=== PATIENT | female | born 1975 | race Caucasian/White ===

== ENCOUNTER 2020-05-29 17:56 | Emergency (ER) | payer OTHER, SELFPAY ==
[2020-05-29 18:10] VITALS: BP 146/84; PULSE 92; RESP 16; TEMP 36.6; O2SAT 100
--- NOTE | 2020-05-29 18:27 | ED.GENADULT ---
HPI - General Adult General Chief complaint: Upper Respiratory Infection Stated complaint: sore throat Time Seen by Provider: 05/29/20 18:27 Source: patient and RN notes reviewed Mode of arrival: ambulatory Limitations: no limitations History of Present Illness HPI narrative: 44-year-old female presents with complaints of sore throat for 1 day. Recently exposed to a family member who had a POSITIVE Strep result per Kayley. Mucinex without relief. Intermittent cough with productive green phlegm. No chest congestion. No high fevers, drooling, neck or throat swelling. Pain is bilateral. Hurts to swallow. Exacerbation factors consist of eating and drinking. No rhinorrhea. Nasal congestion. No voice change. No nausea, vomiting, or abdominal pain. Tolerating liquids well. Denies chills, dyspnea, difficulty swallowing, jaw pain, dental pain, facial pain, foreign body sensation, and rash. LMP no due to endometriosis ablation. Remains active. The patient reports she have not been diagnosed with COVID-19. The patient reports she is not waiting for the results of a COVID-19 lab test. Kayley says she had a NEGATIVE COVID-19 2 weeks ago. The patient reports she do not have fever, chills, weakness, or fatigue. The patient reports she do not have a new or worsening cough or shortness of breath. Denies chest pain. The patient reports she do not have any rhinorrhea, loss of taste, and diarrhea. Denies recent traveling. Denies concerns for COVID-19 or exposures been home with limited outdoor exposure except for essential household needs, work, and return home. At this time, patient is not suspected of having COVID-19. Complaints of dental pain for the past 3-4 days. No treatment. Denies any drainage. No fever. No jaw swelling. No neck swelling. No limitation with speaking or swallowing. Has history of dental caries. Has not seen a dentist recently. No dental trauma. No oral lesions. Exacerbating factors consist of chewing on LT side, eating and drinking cold items. Relieving factors not eating on LT side and avoiding cold items. No dentures or bridges. Tolerating liquids well. Some parts of this dictation were generated by voice recognition software and may contain typographical and/or grammatical inaccuracies. Related Data Home Medications Medication Instructions Recorded Confirmed lisinopril-hydrochlorothiazide 1 tablet PO DAILY 05/29/20 05/29/20 nitroglycerin 0.4 mg SUBLINGUAL DIRECTED 05/29/20 05/29/20 Allergies Allergy/AdvReac Type Severity Reaction Status Date / Time Penicillins Allergy Unknown Hives Verified 05/29/20 18:16 Review of Systems Review of Systems: Narrative: CONSTITUTIONAL: Denies fever, chills, sweats. EYES: Denies visual changes, redness, discharge. ENT: Denies rhinorrhea, otalgia. Complains of sore throat, congestion, LT lower-rear dental pain. CARDIOVASCULAR: Denies chest pain, palpitations, edema. RESPIRATORY: Denies dyspnea, wheezing. Complains of intermittent cough/productive cough. GASTROINTESTINAL: Denies abdominal pain, nausea, vomiting, diarrhea. GENITOURINARY: Denies dysuria, hematuria, abnormal discharge. SKIN: Denies rash or itching. MUSCULOSKELETAL: Denies acute back pain, joint pain, or myalgia. NEUROLOGIC: Denies numbness or focal weakness. PSYCHIATRIC: Denies anxiety or depression. All systems reviewed & are unremarkable except as noted in HPI and below. PENDING SALE TO [facility] Past Medical History Medical History (Updated 05/30/20 @ 00:00 by Background Daemon) Hypertension Myocardial infarct Patient says silent one 04/26 Surgical History Surgical History (Updated 05/29/20 @ 19:36 by HAMZAH Garza) History of breast augmentation History of endometrial ablation History of removal of cyst History of tubal ligation Family History Family History (Updated 05/29/20 @ 19:39 by HAMZAH Garza) Mother Family history of Parkinson's disease Family history of
== END 2020-05-29 18:50 | disposition home or self-care (01) ==
PROVIDERS: Emergency Provider Nurse Practitioner Family; PCP Physician Assistant
DX: K08.89 Other specified disorders of teeth and supporting structures (principal); K02.9 Dental caries, unspecified; J02.9 Acute pharyngitis, unspecified; Z20.828 Contact with and (suspected) exposure to other viral communicable diseases; I10 Essential (primary) hypertension; I25.2 Old myocardial infarction
CPT/HCPCS: 87081; 87804; 87880; 99213; G0463

== ENCOUNTER 2020-08-03 18:22 | Emergency (ER) | payer OTHER, SELFPAY ==
[2020-08-03 18:34] VITALS: BP 206/104; PULSE 70; RESP 18; TEMP 36.9; O2SAT 99
--- NOTE | 2020-08-03 18:47 | ED.DENTAL ---
HPI - Dental/Oral General Chief complaint: Dental/Oral Stated complaint: tooth pain Time Seen by Provider: 08/03/20 18:48 Source: patient and RN notes reviewed Mode of arrival: ambulatory Limitations: no limitations History of Present Illness HPI Narrative: 44-year-old female who presents to [facility] with complaints of 3 day duration of dental pain to the left upper side of her mouth from where she has broke a tooth. Patient states that she has put Ibuprofen directly on area where tooth is broken and also has put Jung Strickland on area with no relief. Patient states that she has been taking large doses of Ibuprofen for the pain, reports she can't take Tylenol due to her heart medication. patient also states complaints of pain to the lower left wisdom tooth where gum is red and swollen. Patient states that the soonest she can get into the dentist is on the 08 of August. MD Complaint: tooth pain (#17 impacted wisdom) and tooth injury (#16,) Location: Tooth # Onset (ago): day(s) (6) Duration: worsening Severity: severe Severity scale (1-10): >10 Relieving factors: NSAIDs Exacerbating factors: cold Context: history of dental caries and poor dental care Associated symptoms: gum swelling Treatment prior to arrival: topical analgesic and other (Ibuprofen) Related Data Home Medications Medication Instructions Recorded Confirmed lisinopril-hydrochlorothiazide 1 tablet PO DAILY 05/29/20 08/03/20 nitroglycerin 0.4 mg SUBLINGUAL DIRECTED 05/29/20 08/03/20 aspirin [Adult Low Dose Aspirin] 81 mg PO DAILY 08/03/20 08/03/20 Allergies Allergy/AdvReac Type Severity Reaction Status Date / Time Penicillins Allergy Unknown Hives Verified 08/03/20 18:44 Review of Systems Review of Systems: Narrative: CONSTITUTIONAL: Denies fever, chills, or sweats. EYES: Denies visual changes, redness, or discharge. ENT: Denies rhinorrhea, congestion, sore throat, or otalgia,positive for dental pain, swelling and redness of gums. Denies any difficulty with her swallowing or any shortness of breath, no trismus noted CARDIOVASCULAR: Denies chest pain, palpitations, or edema. RESPIRATORY: Denies cough or dyspnea. GASTROINTESTINAL: Denies abdominal pain, nausea, vomiting, or diarrhea. GENITOURINARY: Denies dysuria or hematuria. SKIN: Denies rash or itching. MUSCULOSKELETAL: Denies back pain, joint pain, or myalgia. NEUROLOGIC: Denies headache, numbness, or weakness. PSYCHIATRIC: Denies anxiety or depression. All systems reviewed & are unremarkable except as noted in HPI and below PMFSH Past Medical History Medical History Hypertension Myocardial infarct Patient says silent one 04/26 Surgical History Surgical History History of breast augmentation History of endometrial ablation History of removal of cyst History of tubal ligation Family History Family History Mother Family history of Parkinson's disease Family history of Alzheimer's disease Family history of diabetes mellitus in first degree relative Father Family history of lung cancer Other Family history of malignant neoplasm Social History Social History (Updated 08/06/20 @ 17:31 by Mayra Saeed NP) Smoking status: Never smoker Second hand tobacco smoke exposure: No Alcohol intake: current Substance use: never Gender identity (if verbalized by the patient): Female Comments At time of signature, agree with nursing past medical, surgical, social and family history. There is no relevant family history pertinent to the presenting complaint Exam Narrative: Exam Narrative: GENERAL: Well-appearing, well-nourished, and in no acute distress. HEAD: Normocephalic, atraumatic. EYES: PERRLA and EOMI. ENT: Nares clear, no rhinorrhea or epistaxis. Mucous membranes moist.Tm's normal with good light refl
[2020-08-03 19:15] VITALS: BP 178/104
== END 2020-08-03 19:38 | disposition home or self-care (01) ==
PROVIDERS: Emergency Provider Registered Nurse
DX: K02.9 Dental caries, unspecified (principal); I25.2 Old myocardial infarction; Z79.82 Long term (current) use of aspirin
CPT/HCPCS: 99213; G0463

== ENCOUNTER 2021-05-17 19:36 | Emergency (ER) | payer OTHER, SELFPAY ==
--- NOTE | 2021-05-17 19:46 | ED.SKABFB ---
HPI - Skin/Abscess/Foreign Bdy General Chief complaint: Skin/Abscess/Foreign Body Stated complaint: Bee Sting Time Seen by Provider: 05/17/21 19:46 Source: patient and RN notes reviewed Mode of arrival: ambulatory Limitations: no limitations History of Present Illness HPI narrative: 45-year-old female presents to the [facility] after being stung by a bee at 230 this afternoon, 5 hours prior to arrival. No treatment prior to arrival. Swelling noted to the left middle finger and dorsal aspect left hand. Related Data Home Medications Medication Instructions Recorded Confirmed lisinopril-hydrochlorothiazide 1 tablet PO DAILY 05/29/20 05/17/21 nitroglycerin 0.4 mg SUBLINGUAL DIRECTED 05/29/20 05/17/21 aspirin [Adult Low Dose Aspirin] 81 mg PO DAILY 08/03/20 05/17/21 Allergies Allergy/AdvReac Type Severity Reaction Status Date / Time Penicillins Allergy Unknown Hives Verified 05/17/21 19:39 Review of Systems Review of Systems: All systems reviewed & are unremarkable except as noted in HPI and below Constitutional: Constitutional: Reports no additional constitutional complaints, Denies chills and Denies fever(s) Eyes: Eyes: Reports no additional eye complaints ENT: Reports system reviewed and no additional complaints, except as documented Cardiovascular: Cardiovascular: Reports no additional cardiovascular complaints Respiratory: Respiratory: Reports no additional respiratory complaints Integumentary/Breasts: Skin/Breast: Reports as per HPI Comments: Dorsal aspect left hand redness swelling Neurologic: Reports system reviewed and no additional complaints, except as documented Psychiatric: Psychiatric: Reports no additional psychiatric complaints Allergic/Immunologic: Allergic/Immunologic: Reports no additional allergic/immunologic complaints, Denies lip swelling, Denies throat swelling, Denies tongue swelling and Denies wheezing PMFSH Past Medical History Medical History Hypertension Myocardial infarct Patient says silent one 04/26 Surgical History Surgical History History of breast augmentation History of endometrial ablation History of removal of cyst History of tubal ligation Family History Family History Mother Family history of Parkinson's disease Family history of Alzheimer's disease Family history of diabetes mellitus in first degree relative Father Family history of lung cancer Other Family history of malignant neoplasm Social History Social History Smoking status: Never smoker Second hand tobacco smoke exposure: No Alcohol intake: current Substance use: never Gender identity (if verbalized by the patient): Female Sexual Orientation (if Verbalized by the Patient): Straight or Heterosexual Comments At the time of my signature, I reviewed and agree with the nursing past medical, surgical, social, and family history. There is no relevant family history pertinent to the patient complaint. Exam Const: General: healthy appearing, no acute distress and alert Nutritional Appearance: well nourished Orientation/consciousness: patient oriented x3 Limitations: no limitations HENMT: Head: normal to inspection Ears: external ears normal General nose exam: Normal external nose present, Normal nares present and Normal nasal mucous membranes and turbinates present Face and sinus: normal facial exam Mouth: Yes Normal oral and palatal mucosa present and Yes moist mucous membranes Throat: posterior oropharynx normal and uvula midline Eyes: Conjunctivae: conjunctivae normal Pupils: Equal, round and reactive pupils present Neck: Neck: normal visual inspection, no lymphadenopathy and no meningeal signs Chest: Chest palpation & inspection: normal inspection of the chest Resp: Effo
[2021-05-17 19:48] VITALS: BP 152/98; PULSE 84; RESP 18; TEMP 37.1; O2SAT 100
== END 2021-05-17 19:57 | disposition home or self-care (01) ==
PROVIDERS: Emergency Provider Nurse Practitioner
DX: T63.441A Toxic effect of venom of bees, accidental (unintentional), initial encounter (principal); I10 Essential (primary) hypertension; I25.2 Old myocardial infarction
CPT/HCPCS: 99213; G0463

== ENCOUNTER 2022-05-22 10:00 | Emergency (ER) | payer OTHER, SELFPAY ==
--- NOTE | ~2022-05-22 | XR_ITS ---
EXAMINATION: XR shoulder LT min 2V INDICATION: Left shoulder pain TECHNIQUE: Four views of the left shoulder are submitted. COMPARISON: None FINDINGS: Normal alignment. No fracture. Glenohumeral and acromioclavicular joint spaces are normal. Soft tissues are unremarkable. IMPRESSION: 1. No acute osseous abnormality. Reviewed, dictated and finalized at location B.
[2022-05-22 10:08] VITALS: BP 145/82; PULSE 74; RESP 16; TEMP 36.3; O2SAT 100
--- NOTE | 2022-05-22 10:10 | ED.UPPEXIN ---
HPI - Extremity Injury (Upper) General Chief Complaint: Extremity Injury, Upper Stated Complaint: Injury to left shoulder and elbow Time Seen by Provider: 05/22/22 10:20 Source: patient Mode of arrival: ambulatory Limitations: no limitations History of Present Illness HPI narrative: 46 y/o female presented for c/o left shoulder pain for 6 days after injury at work. She states she slipped and fell, landing on the right knee and left arm. States pain is not getting better. Pain is worse to the back of the shoulder with movement, causing sharp shooting pain to the elbow. No pain at rest. Denies numbness, tingling or weakness of the extremity. Takes scheduled Aleve daily and took one additional ibuprofen. Related Data Home Medications Medication Instructions Recorded Confirmed nitroglycerin 0.4 mg sublingual 0.4 mg sublingual DIRECTED 05/29/20 05/17/21 tablet aspirin 81 mg tablet 81 mg PO DAILY 08/03/20 05/17/21 amlodipine 5 mg tablet mg 05/22/22 carvedilol 6.25 mg tablet mg 05/22/22 chlorthalidone 25 mg tablet mg 05/22/22 clonidine HCl 0.1 mg tablet mg 05/22/22 elagolix 150 mg tablet (Orilissa) mg 05/22/22 losartan 25 mg tablet mg 05/22/22 Allergies Allergy/AdvReac Type Severity Reaction Status Date / Time Penicillins Allergy Unknown Hives Verified 05/22/22 10:05 Review of Systems Review of Systems: CONSTITUTIONAL: Denies body aches, fever, chills CARDIOVASCULAR: Denies chest pain, palpitations, or edema. RESPIRATORY: Denies cough or dyspnea. SKIN: Denies rash, itching, or wounds. MUSCULOSKELETAL: reports left shoulder pain NEUROLOGIC: Denies headache, numbness, tingling, or weakness. All systems reviewed & are unremarkable except as noted in HPI and below [facility] Past Medical History Medical History Hypertension Myocardial infarct Patient says silent one 04/26 Surgical History Surgical History History of breast augmentation History of endometrial ablation History of removal of cyst History of tubal ligation Family History Family History Mother Family history of Parkinson's disease Family history of Alzheimer's disease Family history of diabetes mellitus in first degree relative Father Family history of lung cancer Other Family history of malignant neoplasm Social History Social History Smoking status: Never smoker Second hand tobacco smoke exposure: No Alcohol intake: current Substance use: never Gender identity (if verbalized by the patient): Female Sexual Orientation (if Verbalized by the Patient): Straight or Heterosexual Comments At time of signature, I have reviewed and agree with nursing past medical, surgical, social and family history unless otherwise noted. Please see nursing chart for further information. There is no relevant family history pertinent to the presenting complaint Exam Narrative: GENERAL: Well-appearing NECK: Supple. No cervical vpt, full ROM CHEST: Speaks in full sentences. No respiratory distress. HEART: Regular rate and rhythm. Normal and equal peripheral pulses. EXTREMITIES: LUE has normal strength and sensation, normal range of motion at shoulder but endorses pain with movement. Mild tenderness to palpation posterior deltoid, left trapezius. No edema or ecchymosis. No open wounds or obvious deformity; pulse palpable and equal bilaterally, skin warm, dry, pink. Capillary refill less than 3 seconds. SKIN: Warm, dry, no rash. NEURO: Alert and oriented x3. PSYCH: Normal mood and affect Course Course Emergency Course: Patient is aware of diagnosis, understands and agrees to treatment plan. Anticipatory guidance given. Patient agrees to follow-up as directed and is aware of reasons to seek care at the
== END 2022-05-22 11:03 | disposition home or self-care (01) ==
PROVIDERS: Emergency Provider Nurse Practitioner Family; PCP Physician Assistant
DX: M25.512 Pain in left shoulder (principal); I10 Essential (primary) hypertension; I25.2 Old myocardial infarction; Z79.82 Long term (current) use of aspirin
CPT/HCPCS: 73030; 99213; G0463

== ENCOUNTER 2022-11-28 09:12 | Emergency (ER) | payer OTHER, SELFPAY ==
[2022-11-28 09:22] VITALS: BP 166/103; PULSE 95; RESP 16; TEMP 36.1; O2SAT 99
--- NOTE | 2022-11-28 09:40 | ED.URI ---
HPI - URI/Sore Throat General Chief Complaint: Upper Respiratory Infection Stated Complaint: trouble breathing, sore throat Time Seen by Provider: 11/28/22 09:40 Source: patient Mode of arrival: ambulatory Limitations: no limitations History of Present Illness HPI Narrative: 46-year-old female presents with complaint of postnasal drainage, nasal congestion, sore throat for 2 days. Reports headaches. Afebrile. No chest pain or shortness breath. Reports that cough is mild and dry. Taking [id number] Coricidin with no relief of symptoms. Reports that she did have strep exposure to her friend's daughter. Denies nausea vomiting diarrhea. Has a broad shower this weekend and wants to make sure that she does not have strep prior to attending. All systems reviewed and negative except as noted above. Related Data Home Medications Medication Instructions Recorded Confirmed nitroglycerin 0.4 mg sublingual 0.4 mg sublingual DIRECTED 05/29/20 11/28/22 tablet aspirin 81 mg tablet 81 mg PO DAILY 08/03/20 11/28/22 amlodipine 5 mg tablet 10 mg PO DAILY 05/22/22 11/28/22 carvedilol 6.25 mg tablet 6.25 mg PO DAILY 05/22/22 11/28/22 chlorthalidone 25 mg tablet 25 mg PO DAILY 05/22/22 11/28/22 clonidine HCl 0.1 mg tablet 0.1 mg PO DAILY 05/22/22 11/28/22 elagolix 150 mg tablet (Orilissa) 150 mg PO DAILY 05/22/22 11/28/22 losartan 25 mg tablet 25 mg PO DAILY 05/22/22 11/28/22 Allergies Allergy/AdvReac Type Severity Reaction Status Date / Time Penicillins Allergy Unknown Hives Verified 11/28/22 09:21 Review of Systems Review of Systems: CONSTITUTIONAL: Denies fever, chills, or sweats. reports fatigue prior EYES: Denies visual changes, redness, or discharge. ENT: Reports rhinorrhea, congestion, sore throat. Denies otalgia. CARDIOVASCULAR: Denies chest pain, palpitations, or edema. RESPIRATORY: reports cough. Denies dyspnea. GASTROINTESTINAL: Denies abdominal pain, nausea, vomiting, or diarrhea. GENITOURINARY: Denies dysuria or hematuria. SKIN: Denies rash or itching. MUSCULOSKELETAL: Denies back pain, joint pain, or myalgia. NEUROLOGIC: Denies headache, numbness, or weakness. PSYCHIATRIC: Denies anxiety or depression. All other systems reviewed are negative, except as documented in HPI. PMFSH Past Medical History Medical History Hypertension Myocardial infarct Patient says silent one 04/26 Surgical History Surgical History History of breast augmentation History of endometrial ablation History of removal of cyst History of tubal ligation Family History Family History Mother Family history of Parkinson's disease Family history of Alzheimer's disease Family history of diabetes mellitus in first degree relative Father Family history of lung cancer Other Family history of malignant neoplasm Social History Social History Smoking status: Never smoker Second hand tobacco smoke exposure: No Alcohol intake: current Substance use: never Living arrangements: with family Occupation/Education: occupation Gender identity (if verbalized by the patient): Female Sexual Orientation (if Verbalized by the Patient): Straight or Heterosexual Comments At time of signature, agree with nursing past medical, surgical, social and family history. There is no relevant family history pertinent to the presenting complaint. Exam Narrative: GENERAL: This is a well-nourished, well-developed patient, in no apparent distress. HEAD: normocephalic, atraumatic. EYES: PERRL. Sclera clear/white. Vision is grossly intact. EARS: External ears normal, auditory canals clear and without drainage, TMs normal without perforation. Hearing grossly intact. NOSE: External nose normal with clear n
== END 2022-11-28 10:11 | disposition home or self-care (01) ==
PROVIDERS: Emergency Provider Nurse Practitioner Family; PCP Physician Assistant
DX: J01.90 Acute sinusitis, unspecified (principal); B97.89 Other viral agents as the cause of diseases classified elsewhere; I10 Essential (primary) hypertension; I25.2 Old myocardial infarction; Z79.82 Long term (current) use of aspirin; Z20.822 Contact with and (suspected) exposure to COVID-19
CPT/HCPCS: 87081; 87426; 87880; 99213; C9803; G0463

== ENCOUNTER 2023-03-18 11:04 | Emergency (ER) | payer OTHER, SELFPAY ==
--- NOTE | ~2023-03-18 | XR_ITS ---
EXAMINATION: XR ankle RT min 3V DATE: 03/18/2023 11:46 INDICATION: Lateral right ankle pain TECHNIQUE: Anteroposterior, oblique, mortise, and lateral views of the right ankle were obtained. COMPARISON: None. FINDINGS: Alignment is normal. No fracture. Joint spaces are well maintained. Small Achilles and plantar calca irma spurs. No ankle joint effusion. Soft tissue swelling about the lateral malleolus. IMPRESSION: 1. No acute osseous abnormality. Reviewed, dictated and finalized at location A.
[2023-03-18 11:20] VITALS: BP 162/104; PULSE 76; RESP 14; TEMP 36.8; O2SAT 100
--- NOTE | 2023-03-18 11:24 | ED.EXTPRO ---
HPI - Extremity Problem General Chief complaint: Extremity Problem,Nontraumatic Stated complaint: Right Ankle Pain Time Seen by Provider: 03/18/23 11:24 Source: patient Mode of arrival: ambulatory Limitations: no limitations History of Present Illness HPI Narrative: 47-year-old female presents with complaint of pain to right ankle for the past 2 weeks. Denies injury. Pain is worse with ambulatory. Reports the only shoes that she likes to wear are flip-flops. Reports history of plantar fasciitis and states that flu swabs were the only issues at uncomfortable for her. 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 States she has tried several different types of shoe inserts and tennis shoes from the [employer] store a non help her foot pain. Unsure if ankle pain is related to her plantar fasciitis. States that she has asked her primary care physician for referral to Podiatry several times and has not been able to get in for an appointment. All systems reviewed and negative except as noted above. Related Data Home Medications Medication Instructions Recorded Confirmed nitroglycerin 0.4 mg sublingual 0.4 mg sublingual DIRECTED 05/29/20 03/18/23 tablet aspirin 81 mg tablet 81 mg PO DAILY 08/03/20 03/18/23 amlodipine 5 mg tablet 10 mg PO DAILY 05/22/22 03/18/23 carvedilol 6.25 mg tablet 6.25 mg PO DAILY 05/22/22 03/18/23 chlorthalidone 25 mg tablet 25 mg PO DAILY 05/22/22 03/18/23 clonidine HCl 0.1 mg tablet 0.1 mg PO DAILY 05/22/22 03/18/23 elagolix 150 mg tablet (Orilissa) 150 mg PO DAILY 05/22/22 03/18/23 losartan 25 mg tablet 25 mg PO DAILY 05/22/22 03/18/23 spironolactone 25 mg tablet 25 mg PO DAILY 03/18/23 03/18/23 Allergies Allergy/AdvReac Type Severity Reaction Status Date / Time Penicillins Allergy Unknown Hives Verified 03/18/23 11:31 lisinopril AdvReac Cough Verified 03/18/23 11:32 Review of Systems Review of Systems: CONSTITUTIONAL: Denies fever, chills, or sweats. EYES: Denies visual changes, redness, or discharge. ENT: Denies rhinorrhea, congestion, sore throat, or otalgia. CARDIOVASCULAR: Denies chest pain, palpitations, or edema. RESPIRATORY: Denies cough or dyspnea. GASTROINTESTINAL: Denies abdominal pain, nausea, vomiting, or diarrhea. GENITOURINARY: Denies dysuria or hematuria. SKIN: Denies rash or itching. MUSCULOSKELETAL: Denies back pain, joint pain, or myalgia. Reports right ankle pain. NEUROLOGIC: Denies headache, numbness, or weakness. PSYCHIATRIC: Denies anxiety or depression. All other systems reviewed are negative, except as documented in HPI. [facility] Past Medical History Medical History Hypertension Myocardial infarct Patient says silent one 04/26 Surgical History Surgical History History of breast augmentation History of endometrial ablation History of removal of cyst History of tubal ligation Family History Family History Mother Family history of Parkinson's disease Family history of Alzheimer's disease Family history of diabetes mellitus in first degree relative Father Family history of lung cancer Other Family history of malignant neoplasm Social History Social History Smoking status: Never smoker Second hand tobacco smoke exposure: No Alcohol intake: current Substance use: never Living arrangements: with family Occupation/Education: occupation Gender identity (if verbalized by the patient): Female Sexual Orientation (if Verbalized by the Patient): Straight or Heterosexual Comments At time of signature, agree with nursing past medical, surgical, social and family history. There is no relevant family history pertinent to the presenting complaint. Exam Narrative: GENERAL: This
== END 2023-03-18 12:20 | disposition home or self-care (01) ==
PROVIDERS: Emergency Provider Nurse Practitioner Family; PCP Physician Assistant
DX: S96.911A Strain of unspecified muscle and tendon at ankle and foot level, right foot, initial encounter (principal); X58.XXXA Exposure to other specified factors, initial encounter; I10 Essential (primary) hypertension; I25.2 Old myocardial infarction
CPT/HCPCS: 73610; 99213; G0463

== ENCOUNTER 2023-07-21 12:45 | Emergency (ER) | payer OTHER, SELFPAY ==
[2023-07-21 12:59] VITALS: BP 162/96; PULSE 74; RESP 20; TEMP 36.6; O2SAT 97
--- NOTE | 2023-07-21 13:28 | ED.GENADULT ---
HPI - General Adult General Chief complaint: Neck Pain/Injury Stated complaint: Neck Pain Time Seen by Provider: 07/21/23 13:28 Source: patient, RN notes reviewed and old records reviewed Mode of arrival: ambulatory Limitations: no limitations History of Present Illness HPI narrative: 47-year-old female presents to the [facility] with right-sided neck pain since yesterday morning. Had significant other tried massaging it and used icy Hot with minimal to no relief. Patient states she woke up yesterday morning and felt like she just slept wrong. ? Able to shrug shoulders. Full range of motion of the shoulders. Denies any numbness or tingling. Patient is on the lateral aspect of the right neck and radiates into the shoulder area. Full range of motion of the elbow, wrist. Strong title officer noted. No midline tenderness. No loss retention of bowel or bladder. No erythema, ecchymosis or rash noted Treatments prior to arrival: other (Icy Hot massage) Related Data Home Medications Medication Instructions Recorded Confirmed nitroglycerin 0.4 mg sublingual 0.4 mg sublingual DIRECTED 05/29/20 07/21/23 tablet aspirin 81 mg tablet 81 mg PO DAILY 08/03/20 07/21/23 amlodipine 5 mg tablet 10 mg PO DAILY 05/22/22 07/21/23 carvedilol 6.25 mg tablet 6.25 mg PO DAILY 05/22/22 07/21/23 chlorthalidone 25 mg tablet 25 mg PO DAILY 05/22/22 07/21/23 clonidine HCl 0.1 mg tablet 0.1 mg PO DAILY 05/22/22 07/21/23 elagolix 150 mg tablet (Orilissa) 150 mg PO DAILY 05/22/22 07/21/23 losartan 25 mg tablet 25 mg PO DAILY 05/22/22 07/21/23 spironolactone 25 mg tablet 25 mg PO DAILY 03/18/23 07/21/23 Allergies Allergy/AdvReac Type Severity Reaction Status Date / Time Penicillins Allergy Unknown Hives Verified 07/21/23 13:29 lisinopril AdvReac Cough Verified 07/21/23 13:29 Review of Systems Review of Systems: All systems reviewed & are unremarkable except as noted in HPI and below Constitutional: Constitutional: Reports no additional constitutional complaints Eyes: Eyes: Reports no additional eye complaints ENT: Reports system reviewed and no additional complaints, except as documented Cardiovascular: Cardiovascular: Reports no additional cardiovascular complaints, Denies chest pain and Denies dyspnea Respiratory: Respiratory: Reports no additional respiratory complaints, Denies chest congestion, Denies cough and Denies dyspnea Gastrointestinal: Gastrointestinal: Reports no additional gastrointestinal complaints, Denies abdominal pain, Denies nausea and Denies vomiting Musculoskeletal: Musculoskeletal: Reports as per HPI Integumentary/Breasts: Skin/Breast: Reports system reviewed and no additional complaints, except as docu Neurologic: Reports system reviewed and no additional complaints, except as documented Psychiatric: Psychiatric: Reports no additional psychiatric complaints Allergic/Immunologic: Allergic/Immunologic: Reports no additional allergic/immunologic complaints PMFSH Past Medical History Medical History Hypertension Myocardial infarct Patient says silent one 04/26 Surgical History Surgical History History of breast augmentation History of endometrial ablation History of removal of cyst History of tubal ligation Family History Family History Mother Family history of Parkinson's disease Family history of Alzheimer's disease Family history of diabetes mellitus in first degree relative Father Family history of lung cancer Other Family history of malignant neoplasm Social History Social History Smoking status: Never smoker Second hand tobacco smoke exposure: No Alcohol intake: current Substance use: never Living arrangements: with family Occupation/Education: occupation Gen
== END 2023-07-21 13:39 | disposition home or self-care (01) ==
PROVIDERS: Emergency Provider Nurse Practitioner; PCP Physician Assistant
DX: S16.1XXA Strain of muscle, fascia and tendon at neck level, initial encounter (principal); X58.XXXA Exposure to other specified factors, initial encounter; I10 Essential (primary) hypertension; I25.2 Old myocardial infarction
CPT/HCPCS: 99213; G0463

== ENCOUNTER 2023-08-13 10:09 | Emergency (ER) | payer OTHER, SELFPAY ==
[2023-08-13 10:18] VITALS: BP 153/93; PULSE 79; RESP 16; TEMP 37.2; O2SAT 100
--- NOTE | 2023-08-13 10:56 | ED.URI ---
HPI - URI/Sore Throat General Chief Complaint: Upper Respiratory Infection Stated Complaint: cough,chest congestion Source: patient, RN notes reviewed and old records reviewed Mode of arrival: ambulatory Limitations: no limitations History of Present Illness HPI Narrative: 47-year-old female presents to [facility] with complaint of cough, chest congestion for 3 days. Patient denies sinus congestion, body aches, fever, sore throat. Patient states can take [id number] medications due to high blood pressure. MD elicited complaint: cough Onset (ago): day(s) (3) Related Data Home Medications Medication Instructions Recorded Confirmed nitroglycerin 0.4 mg sublingual 0.4 mg sublingual DIRECTED 05/29/20 08/13/23 tablet aspirin 81 mg tablet 81 mg PO DAILY 08/03/20 08/13/23 amlodipine 5 mg tablet 10 mg PO DAILY 05/22/22 08/13/23 carvedilol 6.25 mg tablet 6.25 mg PO DAILY 05/22/22 08/13/23 chlorthalidone 25 mg tablet 25 mg PO DAILY 05/22/22 08/13/23 clonidine HCl 0.1 mg tablet 0.1 mg PO DAILY 05/22/22 08/13/23 elagolix 150 mg tablet (Orilissa) 150 mg PO DAILY 05/22/22 08/13/23 losartan 25 mg tablet 25 mg PO DAILY 05/22/22 08/13/23 spironolactone 25 mg tablet 25 mg PO DAILY 03/18/23 08/13/23 Allergies Allergy/AdvReac Type Severity Reaction Status Date / Time Penicillins Allergy Unknown Hives Verified 08/13/23 10:26 lisinopril AdvReac Cough Verified 08/13/23 10:26 Review of Systems Constitutional: Constitutional: Reports no additional constitutional complaints, Denies fever(s), Denies headache(s) and Denies malaise Eyes: Eyes: Reports no additional eye complaints ENT: Reports system reviewed and no additional complaints, except as documented and Denies nasal congestion Cardiovascular: Cardiovascular: Reports no additional cardiovascular complaints Respiratory: Respiratory: Reports as per HPI, Reports chest congestion, Reports cough, Denies pain on inspiration, Denies pain with cough and Denies dyspnea Neurologic: Reports system reviewed and no additional complaints, except as documented PMFSH Past Medical History Medical History Hypertension Myocardial infarct Patient says silent one 04/26 Surgical History Surgical History History of breast augmentation History of endometrial ablation History of removal of cyst History of tubal ligation Family History Family History Mother Family history of Parkinson's disease Family history of Alzheimer's disease Family history of diabetes mellitus in first degree relative Father Family history of lung cancer Other Family history of malignant neoplasm Social History Social History Smoking status: Never smoker Second hand tobacco smoke exposure: No Alcohol intake: current Substance use: never Living arrangements: with family Occupation/Education: occupation Gender identity (if verbalized by the patient): Female Sexual Orientation (if Verbalized by the Patient): Straight or Heterosexual Comments At the time of my signature, I reviewed and agree with the nursing past medical, surgical, social, and family history. There is no relevant family history pertinent to the patient complaint. Exam Const: General: cooperative, healthy appearing, no acute distress and well nourished Nutritional Appearance: well nourished Orientation/consciousness: patient oriented x3 Limitations: no limitations HENMT: Head: normal to inspection and normocephalic Ears: external ears normal, TM's normal bilaterally, mastoids normal and Abnormal EAC present Face/Nose/Sinus: normal facial exam Face and sinus: normal facial exam Mouth: Yes Normal oral and palatal mucosa present, Yes oropharynx normal and Yes moist mucous membranes Throat: posteri
[2023-08-13 11:08] VITALS: BP 152/78
== END 2023-08-13 11:08 | disposition home or self-care (01) ==
PROVIDERS: Emergency Provider Registered Nurse; PCP Physician Assistant
DX: J40 Bronchitis, not specified as acute or chronic (principal); I25.2 Old myocardial infarction; Z79.82 Long term (current) use of aspirin
CPT/HCPCS: 99213; G0463

== ENCOUNTER 2024-01-05 11:56 | Emergency (ER) | payer OTHER, SELFPAY ==
[2024-01-05 12:04] VITALS: BP 146/86; PULSE 75; RESP 16; TEMP 36.6; O2SAT 100
--- NOTE | 2024-01-05 12:10 | ED.URI ---
HPI - URI/Sore Throat General Chief Complaint: Upper Respiratory Infection Stated Complaint: Sore Throat/Sinus Time Seen by Provider: 01/05/24 12:37 Source: patient and RN notes reviewed Mode of arrival: ambulatory Limitations: no limitations History of Present Illness HPI Narrative: 48-year-old female presents with concern for one-week history of sore throat, hoarse voice, productive cough, posterior rib and upper back discomfort that worsens with coughing. Reports fever, body aches, chills, sweats. Denies known sick contacts. MD elicited complaint: cough, sore throat and nasal congestion Related Data Home Medications Medication Instructions Recorded Confirmed nitroglycerin 0.4 mg sublingual 0.4 mg sublingual DIRECTED 05/29/20 01/05/24 tablet aspirin 81 mg tablet 81 mg PO DAILY 08/03/20 01/05/24 amlodipine 5 mg tablet 10 mg PO DAILY 05/22/22 01/05/24 carvedilol 6.25 mg tablet 6.25 mg PO DAILY 05/22/22 01/05/24 chlorthalidone 25 mg tablet 25 mg PO DAILY 05/22/22 01/05/24 clonidine HCl 0.1 mg tablet 0.1 mg PO DAILY 05/22/22 01/05/24 elagolix 150 mg tablet (Orilissa) 150 mg PO DAILY 05/22/22 01/05/24 losartan 25 mg tablet 25 mg PO DAILY 05/22/22 01/05/24 spironolactone 25 mg tablet 25 mg PO DAILY 03/18/23 01/05/24 semaglutide 0.25 mg or 0.5 mg (2 0.5 mg subcut WEEKLY 01/05/24 01/05/24 mg/1.5 mL) subcutaneous pen injector Allergies Allergy/AdvReac Type Severity Reaction Status Date / Time Penicillins Allergy Unknown Hives Verified 01/05/24 12:28 lisinopril AdvReac Cough Verified 01/05/24 12:28 Review of Systems Review of Systems: CONSTITUTIONAL: Reports malaise, chills, sweats, or fever. EYES: Denies visual changes, redness, or discharge. ENT: Reports rhinorrhea, congestion, and sore throat. CARDIOVASCULAR: Denies chest pain, palpitations, or edema. RESPIRATORY: Reports productive cough, chest wall discomfort. Denies dyspnea. GASTROINTESTINAL: Denies abdominal pain, nausea, vomiting, diarrhea SKIN: Denies rash or itching. MUSCULOSKELETAL: Reports myalgia. NEUROLOGIC: Reports headache. All systems reviewed & are unremarkable except as noted in HPI and below PMFSH Past Medical History Medical History Hypertension Myocardial infarct Patient says silent one 04/26 Surgical History Surgical History History of breast augmentation History of endometrial ablation History of removal of cyst History of tubal ligation Family History Family History Mother Family history of Parkinson's disease Family history of Alzheimer's disease Family history of diabetes mellitus in first degree relative Father Family history of lung cancer Other Family history of malignant neoplasm Social History Social History Smoking status: Never smoker Second hand tobacco smoke exposure: No Alcohol intake: current Substance use: never Living arrangements: with family Occupation/Education: occupation Gender identity (if verbalized by the patient): Female Sexual Orientation (if Verbalized by the Patient): Straight or Heterosexual Comments At time of signature, agree with nursing past medical, surgical, social and family history. There is no relevant family history pertinent to the presenting complaint Exam Narrative: GENERAL: Nontoxic-appearing, well-nourished, and in no acute distress. HEAD: Normocephalic EYES: PERRLA, conjunctivae clear ENT: Nares clear, turbinates edematous and erythematous. Mucous membranes moist. TM pearly rousseau with dull light reflex bilaterally; no tragal tenderness. Oropharynx not erythematous without lesions. Tonsils not enlarged and without exudate, no drooling, no hoarseness, no trismus, uvula midline. NECK: Supple. No lymphadenopathy CHEST: Clear
== END 2024-01-05 13:00 | disposition home or self-care (01) ==
PROVIDERS: Emergency Provider Nurse Practitioner; PCP Physician Assistant
DX: J40 Bronchitis, not specified as acute or chronic (principal); Z20.822 Contact with and (suspected) exposure to COVID-19; I10 Essential (primary) hypertension; I25.2 Old myocardial infarction
CPT/HCPCS: 87081; 87426; 87804; 87880; 99213; G0463

== ENCOUNTER 2024-04-16 16:06 | Emergency (ER) | payer OTHER, SELFPAY ==
--- NOTE | ~2024-04-16 | XR_ITS ---
EXAMINATION: XR abdomen/kub 1V DATE: 04/16/2024 16:48 INDICATION: Left flank pain. TECHNIQUE: A supine view of the abdomen on 2 radiographs was obtained. COMPARISON: CT abdomen and pelvis 07/14/16 FINDINGS: There are no dilated loops of bowel. Surgical clips in the right upper quadrant are likely from cholecystectomy. There are phleboliths in left pelvis. IMPRESSION: 1. No visible urolithiasis. Reviewed, dictated and finalized at location E. IMPRESSION: 1. No visible urolithiasis.
--- NOTE | 2024-04-16 16:14 | ED.GENADULT ---
HPI - General Adult General Chief complaint: Urogenital-Female Stated complaint: stomach pain, blood in urine, had a procedure Time Seen by Provider: 04/16/24 16:14 Source: patient Mode of arrival: ambulatory Limitations: no limitations History of Present Illness HPI narrative: 48-year-old female patient presents to [facility] with complaints of left-sided flank pain and pain with urination and generalized abdominal pain. Patient states that she had a bulkamid procedure for her bladder on March 31. Patient states she return to work on April 10. 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 Patient states she was bending over and moving a lot beer cases when she had returned to work. Patient states she started having some left flank pain last night states it got worse today. Patient states she does have some lower abdominal pain along with she does have some pain with urination. Patient states she was told by her doctor that going to the bathroom might feel different than previous. Patient states she did call the center where she had her procedure done and she was told to go the ER but size come here due to her insurance. Patient denies any fevers, body aches or chills. Denies any nausea vomiting or diarrhea Related Data Home Medications Medication Instructions Recorded Confirmed nitroglycerin 0.4 mg sublingual 0.4 mg sublingual DIRECTED 05/29/20 04/16/24 tablet aspirin 81 mg tablet 81 mg PO DAILY 08/03/20 04/16/24 amlodipine 5 mg tablet 10 mg PO DAILY 05/22/22 04/16/24 carvedilol 6.25 mg tablet 6.25 mg PO DAILY 05/22/22 04/16/24 chlorthalidone 25 mg tablet 25 mg PO DAILY 05/22/22 04/16/24 clonidine HCl 0.1 mg tablet 0.1 mg PO DAILY 05/22/22 04/16/24 elagolix 150 mg tablet (Orilissa) 150 mg PO DAILY 05/22/22 04/16/24 spironolactone 25 mg tablet 25 mg PO DAILY 03/18/23 04/16/24 losartan 100 mg tablet 100 mg PO DAILY 04/16/24 04/16/24 Allergies Allergy/AdvReac Type Severity Reaction Status Date / Time bee venom protein (honey bee) AdvReac Mild Hives Verified 04/16/24 16:27 lisinopril AdvReac Mild Cough Verified 04/16/24 16:12 Penicillins AdvReac Mild Hives Verified 04/16/24 16:12 Review of Systems Review of Systems: CONSTITUTIONAL: Denies fever, chills, or sweats. EYES: Denies visual changes, redness, or discharge. ENT: Denies rhinorrhea, congestion, sore throat, or otalgia. CARDIOVASCULAR: Denies chest pain, palpitations, or edema. RESPIRATORY: Denies cough or dyspnea. GASTROINTESTINAL: positive abdominal pain and left flank pain, denies nausea, vomiting, or diarrhea. GENITOURINARY: pots dysuria hands hematuria. SKIN: Denies rash or itching. MUSCULOSKELETAL: Denies back pain, joint pain, or myalgia. NEUROLOGIC: Denies headache, numbness, or weakness. PSYCHIATRIC: Denies anxiety or depression. [facility] Past Medical History Medical History Hypertension Myocardial infarct Patient says silent one 04/26 Surgical History Surgical History History of breast augmentation History of endometrial ablation History of removal of cyst History of tubal ligation Family History Family History Mother Family history of Parkinson's disease Family history of Alzheimer's disease Family history of diabetes mellitus in first degree relative Father Family history of lung cancer Other Family history of malignant neoplasm Social History Social History Smoking status: Never smoker Second hand tobacco smoke exposure: No Alcohol intake: current Substance use: never Living arrangements: with family Occupation/Education: occupation Gender identity (if verbalized by the patient): Female Sexual Orientation (if Verbalized by the Patient)
[2024-04-16 16:16] VITALS: BP 155/96; PULSE 80; RESP 16; TEMP 36.7; O2SAT 100
[2024-04-16 16:34] LABS: EDUAAPPEAR Cloudy; EDUABILI Negative; EDUABLOOD 1+; EDUACOLOR1 Yellow; EDUAGLUCOSE Negative; EDUAKETONE Negative; EDUALEUKO 1+; EDUANITRATE Negative; EDUAPROTEIN Negative
== END 2024-04-16 17:02 | disposition home or self-care (01) ==
PROVIDERS: Emergency Provider Nurse Practitioner Family; PCP Physician Assistant
DX: N39.0 Urinary tract infection, site not specified (principal); R31.0 Gross hematuria; I10 Essential (primary) hypertension; I25.2 Old myocardial infarction; Z79.82 Long term (current) use of aspirin
CPT/HCPCS: 74018; 81003; 87077; 87086; 87088; 87186; 99213; G0463

== ENCOUNTER 2024-05-18 09:45 | Emergency (ER) | payer OTHER, SELFPAY ==
[2024-05-18 09:56] VITALS: BP 155/96; PULSE 74; RESP 16; TEMP 36.9; O2SAT 100
--- NOTE | 2024-05-18 09:56 | ED.URI ---
HPI - URI/Sore Throat General Chief Complaint: Ear Stated Complaint: right ear ache,ringing Time Seen by Provider: 05/18/24 09:56 Source: patient, RN notes reviewed and old records reviewed Mode of arrival: ambulatory Limitations: no limitations History of Present Illness HPI Narrative: Patient presents with complaints of 4 days of right ear ringing and discomfort. She reports that she has tried wax removal, says that made symptoms worse. She denies any injury or trauma. She denies any other complaints at this time. She has not taken any medication for her symptoms. Related Data Home Medications Medication Instructions Recorded Confirmed nitroglycerin 0.4 mg sublingual 0.4 mg sublingual DIRECTED 05/29/20 04/16/24 tablet aspirin 81 mg tablet 81 mg PO DAILY 08/03/20 04/16/24 amlodipine 5 mg tablet 10 mg PO DAILY 05/22/22 04/16/24 carvedilol 6.25 mg tablet 6.25 mg PO DAILY 05/22/22 04/16/24 chlorthalidone 25 mg tablet 25 mg PO DAILY 05/22/22 04/16/24 clonidine HCl 0.1 mg tablet 0.1 mg PO DAILY 05/22/22 04/16/24 elagolix 150 mg tablet (Orilissa) 150 mg PO DAILY 05/22/22 04/16/24 spironolactone 25 mg tablet 25 mg PO DAILY 03/18/23 04/16/24 losartan 100 mg tablet 100 mg PO DAILY 04/16/24 04/16/24 Allergies Allergy/AdvReac Type Severity Reaction Status Date / Time bee venom protein (honey bee) AdvReac Mild Hives Verified 04/16/24 16:27 lisinopril AdvReac Mild Cough Verified 04/16/24 16:12 Penicillins AdvReac Mild Hives Verified 04/16/24 16:12 Review of Systems Review of Systems: All systems reviewed & are unremarkable except as noted in HPI and below Constitutional: Constitutional: Reports no additional constitutional complaints ENT: Reports system reviewed and no additional complaints, except as documented and Reports as per HPI Cardiovascular: Cardiovascular: Reports as per HPI and Reports no additional cardiovascular complaints Respiratory: Respiratory: Reports as per HPI and Reports no additional respiratory complaints Gastrointestinal: Gastrointestinal: Reports no additional gastrointestinal complaints PMFSH Past Medical History Medical History Hypertension Myocardial infarct Patient says silent one 04/26 Surgical History Surgical History History of breast augmentation History of endometrial ablation History of removal of cyst History of tubal ligation Family History Family History Mother Family history of Parkinson's disease Family history of Alzheimer's disease Family history of diabetes mellitus in first degree relative Father Family history of lung cancer Other Family history of malignant neoplasm Social History Social History Smoking status: Never smoker Second hand tobacco smoke exposure: No Alcohol intake: current Substance use: never Living arrangements: with family Occupation/Education: occupation Gender identity (if verbalized by the patient): Female Sexual Orientation (if Verbalized by the Patient): Straight or Heterosexual Comments At the time of my signature, I reviewed and agree with the nursing past medical, surgical, social, and family history. There is no relevant family history pertinent to the patient complaint. Exam Const: General: cooperative, no acute distress, alert and awake Orientation/consciousness: oriented to person, oriented to place and oriented to time HENMT: Head: normal to inspection Ears: TM normal on the left and Abnormal EAC present cerumen impaction on the right Resp: Effort & Inspection: normal respiratory effort and able to speak in complete sentences Auscultation: clear to auscultation bilaterally, no crackles, no rales, no rhonchi and no wheezes Cardio: Palpation: normal PMI Rate: regular rate
== END 2024-05-18 10:21 | disposition home or self-care (01) ==
PROVIDERS: Emergency Provider Nurse Practitioner Family; PCP Physician Assistant
DX: H61.21 Impacted cerumen, right ear (principal); R03.0 Elevated blood-pressure reading, without diagnosis of hypertension
CPT/HCPCS: 69210; 99213; G0463